=== PATIENT | female | born 1955 | race African-American/Black ===

== ENCOUNTER → 2018-02-04 14:09 | Outpatient (CLI) | payer MEDICAID | END | disposition home or self-care (01) | LOC: D.CT 14:09 | DX: R63.4 Abnormal weight loss (principal) ==

== ENCOUNTER → 2018-02-12 06:32 | Outpatient (CLI) | payer MEDICAID | END | disposition home or self-care (01) | LOC: D.MRI 06:32 | DX: R16.0 Hepatomegaly, not elsewhere classified (principal) ==

== ENCOUNTER → 2018-05-06 17:59 | Outpatient (CLI) | payer MEDICAID | END | disposition home or self-care (01) | LOC: D.MAMMO 13:45 | DX: Z12.31 Encounter for screening mammogram for malignant neoplasm of breast (principal) ==

== ENCOUNTER → 2018-05-29 19:15 | Outpatient (CLI) | payer MEDICAID | END | disposition home or self-care (01) | LOC: D.MAMMO 10:30 | DX: R92.8 Other abnormal and inconclusive findings on diagnostic imaging of breast (principal) ==

== ENCOUNTER 2018-12-13 02:43 | Emergency (ER) | payer MEDICAID ==
[2018-12-13 03:17] VITALS: BMI 28.1
[2018-12-13] MEDS ORDERED: CATAPRES0.1 MG PO (03:19)
[2018-12-13] MEDS ORDERED: LISINOPRIL5 MG PO (03:20)
[2018-12-13] MEDS ORDERED: ATIVAN0.5 MG PO (03:20)
[2018-12-13] MEDS ORDERED: PREDNISONE20 MG PO (03:20)
[2018-12-13] MEDS ORDERED: NORVASC2.5 MG PO (03:20)
[2018-12-13] MEDS ORDERED: AMBIEN5 MG PO (03:20)
[2018-12-13] MEDS ORDERED: HYDROCODON-ACE1 EAC2 PO (04:32)
[2018-12-13 05:01] VITALS: BP 152/88
== END 2018-12-13 05:01 | disposition home or self-care (01) ==
LOC: D.ER 02:43
DX: M48.36 Traumatic spondylopathy, lumbar region (principal); M54.16 Radiculopathy, lumbar region

== ENCOUNTER 2018-12-27 14:51 | Emergency (ER) | payer MEDICAID ==
[~2018-12-27 14:51] MED LIST: AMBIEN5 MG PO; ATIVAN0.5 MG PO; CATAPRES0.1 MG PO; HYDROCODON-ACE1 EAC2 PO; LISINOPRIL5 MG PO; NORVASC2.5 MG PO; PREDNISONE20 MG PO
[2018-12-27 15:05] VITALS: BMI 28.1
[2018-12-27] MEDS ORDERED: HYDROCODON-ACE1 EAC2 PO (16:05)
[2018-12-27 16:24] VITALS: BP 148/84
== END 2018-12-27 16:25 | disposition home or self-care (01) ==
LOC: D.ER 14:51
DX: M54.5 Low back pain (principal); M51.36 Other intervertebral disc degeneration, lumbar region